=== PATIENT | male | born 1955 | race Caucasian/White ===

== ENCOUNTER 2017-06-28 09:19 | Day surgery (SDC) | payer MEDICARE, OTHER ==
[2017-06-28] MEDS ORDERED: PROPOFOL 40 ML (09:31)
== END 2017-06-28 12:22 | disposition home or self-care (01) ==
LOC: GIL 09:19
DX: K92.1 Melena (principal); K44.9 Diaphragmatic hernia without obstruction or gangrene; K21.0 Gastro-esophageal reflux disease with esophagitis; K64.8 Other hemorrhoids; E11.9 Type 2 diabetes mellitus without complications
CPT/HCPCS: 43239; 82962; 88305; 88312